=== PATIENT | male | born 1990 | race Caucasian/White ===

== ENCOUNTER 2020-11-23 20:18 | Inpatient (IN) | payer BC ==
[~2020-11-23] VITALS: Ht 172.7 cm; Wt 81.8 kg
[~2020-11-23 20:18] MED LIST: GABA-1181 PO; HYDR-3831 PO; LAMO100 PO
[2020-11-23] MEDS ORDERED: IBUPROFEN 600 MG TABLET PO ONE (23:15)
[2020-11-23 23:54] LABS: BASOPHILS % (AUTO) 0.4 % (0.0-2.0); EOSINOPHILS % (AUTO) 2.7 % (1.0-6.0); HEMATOCRIT 41.4 % (41-53); HEMOGLOBIN 13.8 g/dL (13.5-17.5); LYMPHOCYTES # (AUTO) 1.1 K/uL (1.0-4.8); LYMPHOCYTES % (AUTO) 17.8 % (22.0-44.0); MEAN CORPUSCULAR HEMOGLOBIN 31.8 pg (26.0-34.0); MEAN CORPUSCULAR HGB CONC 33.4 G/dL (31.0-37.0); MEAN CORPUSCULAR VOLUME 95 fL (80-100); MONOCYTES # (AUTO) 0.6 K/uL (0.1-1.0); MONOCYTES % (AUTO) 10.1 % (2.0-9.0); NEUTROPHILS # (AUTO) 4.3 K/uL (1.8-7.7); PLATELET COUNT (AUTO) 230 K/uL (150-450); RED BLOOD CELL COUNT(AUTO) 4.35 MIL/uL (4.50-5.90)
[2020-11-24 00:03] LABS: COVID AG,FIA SOURCE NASOPHARYNGEAL
[2020-11-24 00:05] LABS: ANION GAP 11 mmol/L (8-16); CALCIUM, TOTAL 9.3 mg/dL (8.8-10.5); CARBON DIOXIDE 28 mmol/L (22-29); CHLORIDE 101 mmol/L (98-107); CREATININE 0.91 mg/dL (0.60-1.30); GLOMERULAR FILTR. RATE CALC > 60 mL/min (>60); GLUCOSE,RANDOM 84 mg/dL (70-110); POTASSIUM 3.5 mmol/L (3.5-5.1); SODIUM SERUM 140 mmol/L (136-145); UREA NITROGEN, BLOOD 10 mg/dL (7-18)
[2020-11-24 00:14] LABS: ALANINE AMINOTRANSFERASE 102 U/L (12-78); ALBUMIN 4.1 g/dL (3.4-5.0); ALKALINE PHOSPHATASE 78 U/L (46-116); ASPARTATE AMINOTRANSFERASE 63 U/L (15-37); BILIRUBIN,TOTAL 1.3 mg/dL (0.1-1.0); TOTAL PROTEIN, SERUM 7.8 g/dL (6.4-8.2); URIC ACID 4.6 mg/dL (2.6-7.2)
[2020-11-24] MEDS ORDERED: LORazepam 1 MG TABLET PO ONE (00:15)
[2020-11-24] MEDS ORDERED: CEPHALEXIN MONOHYDRATE 500 MG CAPSULE PO ONE (00:15)
[2020-11-24] MEDS: GABAPENTIN 300 MG CAPSULE PO SCH ×2 (09:00→16:44)
[2020-11-24] MEDS: LamoTRIgine 25 MG TABLET PO SCH (09:00)
[2020-11-24 09:06] VITALS: BP 112/61
[2020-11-24] MEDS ORDERED: CloNIDine HCL 0.1 MG TABLET PO PRN (10:00)
[2020-11-24] MEDS ORDERED: OMEPRAZOLE 20 MG CAPSULE PO PRN (10:00)
[2020-11-24] MEDS ORDERED: PETROLATUM,WHITE 28 GM JELLY TP PRN (10:00)
[2020-11-24] MEDS ORDERED: ACETAMINOPHEN 325 MG TABLET PO PRN (10:00)
[2020-11-24] MEDS ORDERED: DOCUSATE SODIUM 100 MG CAPSULE PO PRN (10:00)
[2020-11-24] MEDS ORDERED: ALBUTEROL SULFATE HFA 90 MCG/PUFF 8 GM INHALER IH PRN (10:00)
[2020-11-24] MEDS ORDERED: ONDANSETRON HCL 4 MG TABLET PO PRN (10:00)
[2020-11-24] MEDS ORDERED: MAG HYDROX/AL HYDROX/SIMETH ES 30 ML SUSPENSION UDCUP PO PRN (10:00)
[2020-11-24] MEDS ORDERED: LOPERAMIDE HCL 2 MG CAPSULE PO PRN (10:00)
[2020-11-24] MEDS ORDERED: MAGNESIUM HYDROXIDE SUSPENSION 30 ML UDCUP PO PRN (10:00)
[2020-11-24] MEDS ORDERED: BENZOCAINE/MENTHOL LOZENGE PO PRN (10:00)
[2020-11-24] MEDS ORDERED: BACITRACIN 28 GM OINTMENT TP PRN (10:00)
[2020-11-24] MEDS: IBUPROFEN 600 MG TABLET PO PRN ×2 (14:57→21:52)
[2020-11-24 16:19] VITALS: BP 132/80
[2020-11-24 16:35] VITALS: BP 132/80
[2020-11-25 05:14] VITALS: BP 117/76
[2020-11-25 07:22] LABS: BASOPHILS % (AUTO) 0.6 % (0.0-2.0); EOSINOPHILS % (AUTO) 5.5 % (1.0-6.0); HEMATOCRIT 39.6 % (41-53); HEMOGLOBIN 13.4 g/dL (13.5-17.5); LYMPHOCYTES # (AUTO) 1.6 K/uL (1.0-4.8); LYMPHOCYTES % (AUTO) 32.1 % (22.0-44.0); MEAN CORPUSCULAR HEMOGLOBIN 32.2 pg (26.0-34.0); MEAN CORPUSCULAR HGB CONC 33.7 G/dL (31.0-37.0); MEAN CORPUSCULAR VOLUME 96 fL (80-100); MONOCYTES # (AUTO) 0.6 K/uL (0.1-1.0); MONOCYTES % (AUTO) 11.1 % (2.0-9.0); NEUTROPHILS # (AUTO) 2.6 K/uL (1.8-7.7); NEUTROPHILS % (AUTO) 50.7 % (40.0-70.0); PLATELET COUNT (AUTO) 233 K/uL (150-450); RED BLOOD CELL COUNT(AUTO) 4.14 MIL/uL (4.50-5.90)
[2020-11-25 07:55] LABS: ALANINE AMINOTRANSFERASE 109 U/L (12-78); ALBUMIN 3.7 g/dL (3.4-5.0); ALKALINE PHOSPHATASE 71 U/L (46-116); ANION GAP 8 mmol/L (8-16); ASPARTATE AMINOTRANSFERASE 57 U/L (15-37); BILIRUBIN,TOTAL 0.5 mg/dL (0.1-1.0); CARBON DIOXIDE 28 mmol/L (22-29); CHLORIDE 103 mmol/L (98-107); CHOLESTEROL 172 mg/dL (131-200); CREATININE 1.01 mg/dL (0.60-1.30); FREE T4 (FREE THYROXINE) 1.24 ng/dL (0.76-1.46); GLOMERULAR FILTR. RATE CALC > 60 mL/min (>60); GLUCOSE,RANDOM 91 mg/dL (70-110); HDL CHOLESTEROL 85 mg/dL (40-60); LDL CHOL (CALC.) 79 mg/dL (0-130); POTASSIUM 4.2 mmol/L (3.5-5.1); SODIUM SERUM 139 mmol/L (136-145); THYROID STIMULATING HORMONE 0.64 uIU/mL (0.36-3.74); TOTAL PROTEIN, SERUM 7.3 g/dL (6.4-8.2); TRIGLYCERIDES 42 mg/dL (15-150); UREA NITROGEN, BLOOD 12 mg/dL (7-18)
[2020-11-25] MEDS: GABAPENTIN 300 MG CAPSULE PO SCH ×2 (08:25→16:15)
[2020-11-25] MEDS: LamoTRIgine 25 MG TABLET PO SCH (08:25)
[2020-11-25 08:37] VITALS: BP 116/65
[2020-11-25] MEDS: IBUPROFEN 600 MG TABLET PO PRN ×2 (15:19→22:42)
[2020-11-25 16:13] VITALS: BP 134/81
[2020-11-25 22:42] VITALS: BP 124/78
[2020-11-26 06:15] VITALS: BP 101/56
[2020-11-26 08:16] VITALS: BP 113/60
[2020-11-26] MEDS: GABAPENTIN 300 MG CAPSULE PO SCH ×2 (08:46→12:35)
[2020-11-26] MEDS ORDERED: LamoTRIgine 25 MG TABLET PO SCH (09:00)
[2020-11-26] MEDS ORDERED: LAMO25TA25 PO (13:11)
[2020-11-26] MEDS ORDERED: GABA-1181 PO (13:16)
== END 2020-11-26 14:44 | disposition home or self-care (01) | DRG 885 ==
LOC: EMS 20:20 → EDBD 11-24 → B3A 11-24 → EMS 11-24 04:14
PROVIDERS: ADMIT Psychiatry & Neurology Psychiatry; ATTEND Psychiatry & Neurology Psychiatry
DX: F20.9 Schizophrenia, unspecified (principal); F31.9 Bipolar disorder, unspecified; F41.9 Anxiety disorder, unspecified; K59.00 Constipation, unspecified; G47.00 Insomnia, unspecified; F10.10 Alcohol abuse, uncomplicated; F17.200 Nicotine dependence, unspecified, uncomplicated; F15.10 Other stimulant abuse, uncomplicated; Z20.822 Contact with and (suspected) exposure to COVID-19; M79.89 Other specified soft tissue disorders; Z79.899 Other long term (current) drug therapy
CPT/HCPCS: 29515; 80053; 80061; 83036; 84436; 84439; 84443; 84550; 85025; 86592; 87426; 99285; G0480